=== PATIENT | male | born 1985 | race Caucasian/White ===

== ENCOUNTER 2020-11-16 09:55 | Emergency (ER) | payer OTHER ==
[~2020-11-16] VITALS: Ht 188 cm; Wt 150.0 kg
[2020-11-16 10:25] VITALS: BP 105/63
[2020-11-16] MEDS ORDERED: DIPH,PERTUSS(ACELL),TET VAC/PF 0.5 ML SYRINGE. VAX IM ONE ×2 (10:30→10:32)
--- NOTE | 2020-11-16 10:49 | PHYS DOC ---
Past History Past Medical History: Hypertension Additional Past Medical Histor: PKD Alcohol Use: Occasionally General Adult EDM: Chief Complaint: LACERATION/AVULSION HPI: HPI: Patient is a laceration to the fat pad of his left thumb. He was working with a light fixture that broke and sliced his thumb. No other injuries denies paresthesias. Last tetanus about 7 years ago. Otherwise been well without recent illness. No history of immune compromise or bleeding disorders. Review of Systems: Review of Systems: All other systems within normal limits except for as noted in the HPI Current Medications: Current Meds: Current Medications Medications (Trade) Dose Ordered Sig/Chastity Start Time Stop Time Status Last Admin Dose Admin Diphtheria/ Pertussis/Tetanus Vacc (ADACEL TDap SYRINGE) 0.5 ml ONCE ONCE 11/16/20 10:30 11/16/20 10:31 UNV Physical Exam: PE: Constitutional: Well developed, well nourished, no acute distress, non-toxic appearance. [] HENT: Normocephalic, atraumatic, bilateral external ears normal, nose normal. [] Eyes: PERRLA, conjunctiva normal, no discharge. [] Neck: No rigidity, supple, no stridor. [] Cardiovascular: Regular rate and rhythm, brisk cap refill [] Lungs & Thorax: Non labored symmetric respirations, no tachypnea or respiratory distress [] Abdomen: Soft, nondistended. Skin: Warm, dry, no erythema, no rash. Narrow U-shaped 1 cm superficial laceration to left thumb. [] Back: No tenderness, no CVA tenderness. [] Extremities: No deformities, range of motion grossly intact, no lower extremity edema [] Neurologic: Alert and oriented X 3, no focal deficits noted. [] Psychologic: Affect normal, judgement normal, mood normal. [] Current Patient Data: Vital Signs: Vital Signs Date Time Temp Pulse Resp B/P (MAP) Pulse Ox O2 Delivery O2 Flow Rate FiO2 11/16/20 10:25 99.7 88 16 105/63 (77) 96 Room Air EKG: EKG: [] Radiology/Procedures: Radiology/Procedures: [] Heart Score: Risk Factors: Risk Factors: DM, Current or recent (<one month) smoker, HTN, HLP, family history of CAD, obesity. Risk Scores: Score 0 - 3: 2.5% MACE over next 6 weeks - Discharge Home Score 4 - 6: 20.3% MACE over next 6 weeks - Admit for Clinical Observation Score 7 - 10: 72.7% MACE over next 6 weeks - Early Invasive Strategies Course & Med Decision Making: Course & Med Decision Making Discussed options with patient glue and splint for suture. Wound is nonbleeding and very small. Patient would like to do glue and splint instead of sutures. Tetanus updated. [] Aniceto Disclaimer: Aniceto Disclaimer: This electronic medical record was generated, in whole or in part, using a voice recognition dictation system. Departure Departure: Impression: Primary Impression: Laceration of thumb, left Disposition: 01 DC HOME SELF CARE/HOMELESS Condition: STABLE Referrals: CAMILLA FELIX-FERNANDO (PCP) Patient Instructions: Tissue Adhesive Wound Care SUNITA KIRKLAND MD Nov 16, 2020 10:49
== END 2020-11-16 11:02 | disposition home or self-care (01) ==
LOC: ER 09:55
DX: S61.012A Laceration without foreign body of left thumb without damage to nail, initial encounter (principal); I10 Essential (primary) hypertension; W25.XXXA Contact with sharp glass, initial encounter; Y93.89 Activity, other specified; Y92.89 Other specified places as the place of occurrence of the external cause; Y99.8 Other external cause status
CPT/HCPCS: 12001; 29130; 90471; 90715; 99283

== ENCOUNTER 2021-08-15 20:27 | Emergency (ER) | payer OTHER ==
[~2021-08-15] VITALS: Ht 188 cm; Wt 131.8 kg
[2021-08-15 20:47] VITALS: BP 144/102
--- NOTE | 2021-08-15 21:43 | PHYS DOC ---
Past History Past Medical History: Hypertension Additional Past Medical Histor: PKD (WILNER CHAVEZ) Past Medical History History of previous epididymitis (ART MCDERMOTT MD) Past Surgical History: Other Additional Past Surgical Histo: WISDOM TEETH, FISTULA (WILNER CHAVEZ) Past Surgical History Peritoneal dialysis-shunt (ART MCDERMOTT MD) Alcohol Use: Occasionally (WILNER CHAVEZ) General Adult EDM: Chief Complaint: TESTICULAR PAIN OR INJURY HPI: HPI: Patient is a 35 year old male with history of PKD on peritoneal dialysis who presents with testicular pain and swelling onset 30 minutes [employer]ROL [employer]. Patient reports 3/10 pain and swelling to his right testicle. Patient states he was sitting down watching TV when he noticed a discomfort. Upon inspecting the pain, he noticed significant swelling, and decided to come to the emergency department. Patient denies any recent strenuous activity, with the heaviest thing he is lifted recently being a 15-20 pound box that he took him from work. Patient reports he had epididymitis 6-7 years ago, at which time he had pain but no swelling. Patient denies dysuria, hematuria, urethral discharge, penile pain or swelling, abdominal pain, N/V/D. (WILNER CHAVEZ) Review of Systems: Review of Systems: Constitutional: Denies fever or chills Respiratory: Denies cough or shortness of breath Cardiovascular: Denies chest pain or edema GI: See HPI : See HPI Musculoskeletal: Denies back pain or joint pain Integument: Denies rash or other skin lesion (WILNER CHAVEZ) Allergies: Allergies: Allergies Coded Allergies Type Severity Reaction Last Updated Verified No Known Drug Allergies 08/15/21 No (WILNER CHAVEZ) Physical Exam: PE: Constitutional: Well developed, well nourished, no acute distress, non-toxic appearance. Cardiovascular: Heart rate regular rhythm, no murmur. Lungs & Thorax: Bilateral breath sounds clear to auscultation. Abdomen: Bowel sounds normal, soft, no tenderness, no masses, no pulsatile masses. : R testicle swollen approximately 9-10 cm. No masses appreciated in bilateral groin. No erythema or other lesions. Penis is without lesions, discharge or swelling. No urethral discharge appreciated. (WILNER CHAVEZ) Current Patient Data: Vital Signs: Vital Signs Date Time Temp Pulse Resp B/P (MAP) Pulse Ox O2 Delivery O2 Flow Rate FiO2 08/15/21 20:47 98.4 99 18 144/102 (116) 98 Room Air (WILNER CHAVEZ) Radiology/Procedures: Radiology/Procedures: [] (WILNER CHAVEZ) Radiology/Procedures: [address] [id number] IMAGING REPORT Signed PATIENT: MALINDA CERNA ACCOUNT: [id number] : 1985 LOCATION: ER AGE: 35 SEX: M EXAM STATUS: REG ER ORD. PHYSICIAN: WILNER CHAVEZ REASON: swollen R testis PROCEDURE: TESTICULAR/SCROTUM Scrotal ultrasound 08/15/2021 CLINICAL HISTORY: Right scrotal swelling. TECHNIQUE: Using a combination real-time ultrasound imaging and color-flow and pulse Doppler imaging techniques, duplex evaluation of scrotal sac and its c ontents was performed. Multiple images were obtained. FINDINGS: The right testicle is within normal limits in size and echogenicity. It measures 4.1 x 2.8 x 2.4 cm in longitudinal, transverse, and AP dimensions. The left testicle is within normal limits in size and configuration. It measures 4.2 x 2.7 x 2.5 cm in size. No focal abnormality of either testicle is seen. Normal color-flow and pulse Doppler imaging to both testicles is noted. A extratesticular calcification which measures 4.5 cm is seen immediately anterior to the left testicle. This likely represents a scrotal with . A 7 mm oval- shaped anechoic structure is seen within the right epididymal head with a cyst. The left epididymal head is within normal limits. A moderate-sized complex hydrocele is seen surrounding the right testicle. Edema and scrotal wall thickening are seen involving the right scrotum. No varicocele is seen. IMPRESSION: 1. . 7 mm cyst is seen involving the right epididymal head. 2. Moderate complex right hydrocele. 3. . Right-sided edema and scrotal wall thickening is seen. Electronically signed by: Shaggy Anne MD (08/15/2021 11:51 PM) [id number] DICTATED AND SIGNED BY: SHAGGY ANNE MD DATE: 08/15/21 2340 CC: SANJUANA OMBLEY MD; ART MCDERMOTT MD; WILNER CHAVEZ ~MTH0 0 (ART MCDERMOTT MD) Heart Score: C/O Chest Pain: No (WILNER CHAVEZ) Course & Med Decision Making: Course & Med Decision Making Pertinent Labs and Imaging studies reviewed. (See chart for details) Ultrasound ordered to evaluate testicular swelling. Urinalysis also ordered. Patient CARE handed to Dr. Mcdermott at 2210. (WILNER CHAVEZ) Course & Med Decision Making See [place] chart for details prior shift change. Patient continue prior meds for his chronic medical issues. Patient take Cipro 500 mg twice a day. Patient follow-up pending culture. Patient follow-up primary care and to review ED work-up. 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 Return if any concerns. Must have some improvement by day three after starting the Cipro or have a reexam. Did warn patient that torsion can never be completely eliminated by the ultrasound alone. Impression: 1. Right scrotal wall edema and inflammation 2. Epididymitis 3. Right hydrocele 4. History of peritoneal dialysis 5. Chronic renal failure (ART MCDERMOTT MD) Dragon Disclaimer: Dragon Disclaimer: This electronic medical record was generated, in whole or in part, using a voice recognition dictation system. (WILNER CHAVEZ) Departure Departure: Referrals: SANJUANA MOBLEY MD (PCP) Scripts Ciprofloxacin (CIPRO) 500 Mg/5 Ml [facility]..rec 500 MG PO BID for epiddidmysitis for 7 Days, [facility] Prov: ART MCDERMOTT MD 08/16/21 Attending Signature Attending Signature I have participated in the care of this patient and I have reviewed and agree with all pertinent clinical information above including history, exam, and recommendations. (ART MCDERMOTT MD) Dragon Disclaimer This chart was dictated in whole or in part using Voice Recognition software in a busy, high-work load, and often noisy Emergency Department environment. It may contain unintended and wholly unrecognized errors or omissions. (ART MCDERMOTT MD) WILNER CHAVEZ Aug 15, 2021 21:43 ART MCDERMOTT MD Aug 16, 2021 00:03
[2021-08-15 22:01] LABS: BILIRUBIN,URINE NEG (NEG); CLARITY,URINE CLEAR; COLOR,URINE YELLOW; GLUCOSE,URINE NEG (NEG); NITRITE,URINE NEG (NEG); UROBILINOGEN,URINE 0.2 mg/dL (0.2 mg/dL)
[2021-08-15 22:02] LABS: BACTERIA,URINE FEW /HPF (0-FEW); RBC,URINE 0 /HPF (0-2)
[2021-08-15] MEDS ORDERED: CIPROFLOXACIN HCL 500 MG TABLET PO ONE (22:15)
[2021-08-15] MEDS ORDERED: ONDANSETRON ODT 4 MG TAB.RAPDIS PO ONE (23:00)
[2021-08-15] MEDS ORDERED: metroNIDAZOLE 500 MG TABLET PO ONE (23:00)
[2021-08-15] MEDS ORDERED: AZITHROMYCIN 250 MG TABLET. PO ONE (23:00)
[2021-08-15] MEDS ORDERED: cefTRIAXone SODIUM 1 GM VIAL ONE (23:13)
[2021-08-15] MEDS ORDERED: cefTRIAXone IM 1 GM VIAL IM ONE (23:30)
--- NOTE | 2021-08-15 23:53 | RAD ---
Scrotal ultrasound 08/15/2021 CLINICAL HISTORY: Right scrotal swelling. TECHNIQUE: Using a combination real-time ultrasound imaging and color-flow and pulse Doppler imaging techniques, duplex evaluation of scrotal sac and its contents was performed. Multiple images were obt ained. FINDINGS: The right testicle is within normal limits in size and echogenicity. It measures 4.1 x 2.8 x 2.4 cm in longitudinal, transverse, and AP dimensions. The left testicle is within normal limits in size and configuration. It measures 4.2 x 2.7 x 2.5 cm in size. No focal abnormality of either testi janae is seen. Normal color-flow and pulse Doppler imaging to both testicles is noted. A extratesticula r calcification which measures 4.5 cm is seen immediately anterior to the left testicle. This likely represents a scrotal with . A 7 mm oval-shaped anechoic structure is seen within the right epididymal head with a cyst. The left epididymal head is within normal limits. A moderate-sized complex hydroce le is seen surrounding the right testicle. Edema and scrotal wall thickening are seen involving the r ight scrotum. No varicocele is seen. IMPRESSION: 1. . 7 mm cyst is seen involving the right epididymal head. 2. Moderate complex right hydrocele. 3. . Right-sided edema and scrotal wall thickening is seen. Electronically signed by: Shaggy Anne MD (08/15/2021 11:51 PM) [id number]
[2021-08-16] MEDS ORDERED: CIPR500S2 PO (00:08)
== END 2021-08-16 00:34 | disposition home or self-care (01) ==
LOC: ER 20:27
DX: N45.1 Epididymitis (principal); R60.9 Edema, unspecified; N43.3 Hydrocele, unspecified; N18.9 Chronic kidney disease, unspecified; I10 Essential (primary) hypertension
CPT/HCPCS: 36415; 76870; 81001; 87086; 87491; 87591; 96372; 99284; J0696; Q0162